=== PATIENT | female | born 1985 | race African-American/Black ===

== ENCOUNTER 2020-08-03 20:32 | Emergency (ER) | payer OTHER ==
--- NOTE | 2020-08-03 20:49 | PDOC ---
Rapid Medical Evaluation Time Seen by Provider: 08/03/20 20:45 Medical Evaluation: Allergies Allergy/AdvReac Type Severity Reaction Status Date / Time No Known Allergies Allergy Verified 04/10/16 07:28 08/03/20 20:46 34 year old female pmhx of DMII heavy smoker with 3 days of left shoulder pain non radiating. Denies CP SOB PE: reproducible pain on ROM ttp over left trap Plan: EKG if WNL pt to precede to FT
[2020-08-03 20:51] VITALS: BMI 44.4
--- OUTSIDE RECORDS SUMMARY | 2020-08-03 21:00 | XMS ---
:1985 Author Organization [facility] Support Name Relationship Address Phone SHOP Unavailable [address] [place] [address] S[place] [address] SINDHU TRIPP Unavailable Unavailable Unavailable Re-disclosure Warning The records that you are about to access may contain information from federally- assisted alcohol or drug abuse programs. If such information is present, then the following federally mandated warning applies: This information has been disclosed to you from records protected by federal confidentiality rules (42 CFR part 2). The federal rules prohibit you from making any further disclosure of this information unless further disclosure is expressly permitted by the written consent of the person to whom it pertains or as otherwise permitted by 42 CFR part 2. A general authorization for the release of medical or other information is NOT sufficient for this purpose. The Federal rules restrict any use of the information to criminally investigate or prosecute any alcohol or drug abuse patient.The records that you are about to access may contain highly sensitive health information, the redisclosure of which is protected by Article 27-F of the [facility] Public Health law. If you continue you may haveaccess to information: Regarding HIV / AIDS; Provided by facilities licensed or operated by the [facility] Office of Mental Health; or Provided by the [facility] Office for People With Developmental Disabilities. If such information is present, then the following [facility] mandated warning applies: This information has been disclosed to you from confidential records which are protected by state law. State law prohibits you from making any further disclosure of this information without the specific written consent of the person to whom it pertains, or as otherwise permitted by law. Any unauthorized further disclosure in violation of state law may result in a fine or alf sentence or both. A general authorization for the release of medical or other information is NOT sufficient authorization for further disclosure. Encounters Encounter Providers Location Date Indications Data Source(s ) Outpatient [facility] 08/26/2019 eCW3 ([facility] 12:00:00 AM Health Care) EST - 08/26/2019 12:00:00 AM EST Outpatient [facility] 08/19/2019 eCW3 ([facility] 12:00:00 AM Health Care) EDT - 08/19/2019 12:00:00 AM EDT Outpatient [facility] 07/28/2019 eCW3 ([facility] 12:00:00 AM Health Care) EDT - 07/28/2019 12:00:00 AM EDT Outpatient [facility] 07/10/2019 eCW3 ([facility] 12:00:00 AM Health Care) EDT - 07/10/2019 12:00:00 AM EDT Outpatient [facility] 06/13/2019 eCW3 ([facility] 12:00:00 AM Health Care) EDT - 06/13/2019 12:00:00 AM EDT Immunizations Vaccine Date Status Description Data Source(s) New in 2011. IIV4 07/28/2019 completed eCW3 ([facility] 11:16:00 AM EDT Health Care) Pneumococcal conjugate 07/28/2019 completed eCW3 [facility] New in 2011. IIV4 07/28/2019 completed eCW3 ([facility] 11:16:00 AM EDT Health Care) Pneumococcal conjugate 07/28/2019 completed eCW3 ([facility] 11:16:00 AM ED Health Care) New in 2011. IIV4 07/28/2019 completed eCW3 ([facility] 11:16:00 AM EDT Health Care) Pneumococcal conjugate 07/28/2019 completed eCW3 ([facility] 11:16:00 AM ED Health Care) New in 2011. IIV4 07/28/2019 completed eCW3 ([facility] 11:16:00 AM EDT Health Care) Pneumococcal conjugate 07/28/2019 completed eCW3 ([facility] 11:16:00 AM ED Health Care) Medications Medication Brand Start Product Dose Route Administrative Pharmacy [facility] Indications Reaction Description Data Name Date Form Instructions Instructions Source(s) Ibuprofen Ibupro 04/21/ active Ibuprofen eCW3 600 MG Oral fen 2020 600 MG ([facility] 600 MG 12:00: [facility] 00 AM Health EDT Care) Ibuprofen Ibupro 04/21/ active Ibuprofen eCW3 600 MG Oral fen 2020 600 MG ([place] [facility] Tablet 600 MG 12:00: [facility] 00 AM Health EDT Care) Ibuprofen Ibupro 04/21/ active Ibuprofen eCW3 600 MG Oral fen 2020 600 MG ([place] Tablet 600 MG 12:00: [facility] 00 AM Health EDT Care) Ibuprofen Ibupro 04/21/ active Ibuprofen eCW3 600 MG Oral fen 2020 600 MG ([place] Tablet 600 MG 12:00: [facility] 00 AM Health EDT Care) Ibuprofen Ibupro 04/21/ active Ibuprofen eCW3 600 MG Oral fen 2020 600 MG ([place] [facility] Tablet 600 MG 12:00: [facility] 00 AM Health EDT Care) Methimazole Methim .0 active Methima zole eCW3 5 MG Oral azole 2019 {tabl 5 MG ([facility] Tablet 5 MG 12:00: [facility] 00 AM th_fo Health EST od} Care) Methimazole Methim .0 active Methima zole eCW3 5 MG Oral azole 2019 {tabl 5 MG ([facility] Tablet 5 MG 12:00: [facility] 00 AM th_fo Health EST od} Care) Methimazole Methim .0 active Methima zole eCW3 5 MG Oral azole 2019 {tabl 5 MG ([facility] Tablet 5 MG 12:00: [facility] 00 AM th_fo Health EST od} Care) Methimazole Methim .0 active Methima zole eCW3 5 MG Oral azole 2019 {tabl 5 MG ([facility] Tablet 5 MG 12:00: [facility] 00 AM th_fo Health EST od} Care) Methimazole Methim .0 active Methima zole eCW3 5 MG Oral azole 2019 {tabl 5 MG ([facility] Tablet 5 MG 12:00: [facility] 00 AM th_fo Health EST od} Care) Methimazole Methim .0 active Methima zole eCW3 5 MG Oral azole 2019 {tabl 5 MG ([facility] Tablet 5 MG 12:00: [facility] 00 AM th_fo Health EST od} Care) Metformin Metfor .0 active Metformin eCW3 hydrochlori min 2019 {tabl HCl 1000 MG ([facility] de 1000 MG HCl 12:00: [facility] Oral Tablet 1000 00 AM _a_ Health Metformin MG EDT meal} Care) HCl 1000 MG Metformin Metfor .0 active Metformin eCW3 hydrochlori min 2019 {tabl HCl 1000 MG ([facility] de 1000 MG HCl 12:00: [facility] Oral Tablet 1000 00 AM _a_ Health Metformin MG EDT meal} Care) HCl 1000 MG Metformin Metfor .0 active Metformin eCW3 hydrochlori min 2019 {tabl HCl 1000 MG ([facility] de 1000 MG HCl 12:00: [facility] Oral Tablet 1000 00 AM _a_ Health Metformin MG EDT meal} Care) HCl 1000 MG Metformin Metfor .0 active Metformin eCW3 hydrochlori min 2019 {tabl HCl 1000 MG ([facility] de 1000 MG HCl 12:00: [facility] Oral Tablet 1000 00 AM _a_ Health Metformin MG EDT meal} Care) HCl 1000 MG Metformin Metfor .0 active Metformin eCW3 hydrochlori min 2019 {tabl HCl 1000 MG ([facility] de 1000 MG HCl 12:00: [facility] Oral Tablet 1000 00 AM _a_ Health Metformin MG EDT meal} Care) HCl 1000 MG Metformin Metfor .0 active Metformin eCW3 hydrochlori min 2019 {tabl HCl 1000 MG ([facility] de 1000 MG HCl 12:00: et_wi [facility] Oral Tablet 1000 00 AM _a_ Health Metformin MG EDT meal} Care) HCl 1000 MG BD Pen BD Pen 07/11/ active BD Pen eCW3 Needle Mini Needle 2018 Needle Mini ([facility] U/F 31G X 5 Mini 12:00: U/F 31G X 5 [facility] MM U/F 00 AM MM Health 31G X EDT Care) 5 MM Pen [place] Pen 07/11/ active Pen Needl es eCW3 31G X 8 MM Needle 2019 31G X 8 MM ( [facility] 31G 12:00: [facility] X 8 MM 00 AM Health EDT Care) Pen [place] Pen 07/11/ active Pen Needl es eCW3 31G X 8 MM Needle 2019 31G X 8 MM ( [facility] 31G 12:00: [facility] X 8 MM 00 AM Health EDT Care) BD Pen BD Pen 07/11/ active BD Pen eCW3 Needle Mini Needle 2018 Needle Mini ([facility] U/F 31G X 5 Mini 12:00: U/F 31G X 5 [facility] MM U/F 00 AM MM Health 31G X EDT Care) 5 MM Pen [place] Pen 07/11/ active Pen Needl es eCW3 31G X 8 MM Needle 2018 31G X 8 MM ( [facility] 31G 12:00: [facility] X 8 MM 00 AM Health EDT Care) Isopropyl Alcoho 07/11/ active Alcohol P rep eCW3 Alcohol 0.7 l Prep 2018 70 % ([place] [facility] ML/ML 70 % 12:00: [facility] Medicated 00 AM Health Pad Alcohol EDT Care) Prep 70 % Pen [place] Pen 07/11/ active Pen Needl es eCW3 31G X 8 MM Needle 2019 31G X 8 MM ( [facility] 31G 12:00: [facility] X 8 MM 00 AM Health EDT Care) Isopropyl Alcoho 07/11/ active Alcohol P rep eCW3 Alcohol 0.7 l Prep 2018 70 % ([place] [facility] ML/ML 70 % 12:00: [facility] Medicated 00 AM Health Pad Alcohol EDT Care) Prep 70 % Isopropyl Alcoho 07/11/ active Alcohol P rep eCW3 Alcohol 0.7 l Prep 2018 70 % ([place] [facility] ML/ML 70 % 12:00: [facility] Medicated 00 AM Health Pad Alcohol EDT Care) Prep 70 % Isopropyl Alcoho 07/11/ active Alcohol P rep eCW3 Alcohol 0.7 l Prep 2018 70 % ([place] [facility] ML/ML 70 % 12:00: [facility] Medicated 00 AM Health Pad Alcohol EDT Care) Prep 70 % BD Pen BD Pen 07/11/ active BD Pen eCW3 Needle Mini Needle 2019 Needle Mini ([facility] U/F 31G X 5 Mini 12:00: U/F 31G X 5 [facility] MM U/F 00 AM MM Health 31G X EDT Care) 5 MM BD Pen BD Pen 07/11/ active BD Pen eCW3 Needle Mini Needle 2018 Needle Mini ([facility] U/F 31G X 5 Mini 12:00: U/F 31G X 5 [facility] MM U/F 00 AM MM Health 31G X EDT Care) 5 MM BD Pen BD Pen 07/11/ active BD Pen eCW3 Needle Mini Needle 2018 Needle Mini ([facility] U/F 31G X 5 Mini 12:00: U/F 31G X 5 [facility] MM U/F 00 AM MM Health 31G X EDT Care) 5 MM Isopropyl Alcoho 07/11/ active Alcohol P rep eCW3 Alcohol 0.7 l Prep 2018 70 % ([place] ML/ML 70 % 12:00: [facility] Medicated 00 AM Health Pad Alcohol EDT Care) Prep 70 % Isopropyl Alcoho 07/11/ active Alcohol P rep eCW3 Alcohol 0.7 l Prep 2018 70 % ([place] [facility] ML/ML 70 % 12:00: [facility] Medicated 00 AM Health Pad Alcohol EDT Care) Prep 70 % BD Pen BD Pen 07/11/ active BD Pen eCW3 Needle Mini Needle 2018 Needle Mini ([facility] U/F 31G X 5 Mini 12:00: U/F 31G X 5 [facility] MM U/F 00 AM MM Health 31G X EDT Care) 5 MM Pen [place] Pen 07/11/ active Pen Needl es eCW3 31G X 8 MM Needle 2018 31G X 8 MM ( [facility] 31G 12:00: [facility] X 8 MM 00 AM Health EDT Care) Pen [place] Pen 07/11/ active Pen Needl es eCW3 31G X 8 MM Needle 2018 31G X 8 MM ( [facility] 31G 12:00: [facility] X 8 MM 00 AM Health EDT Care) Blood Blood 07/10/ active Blood eCW3 Glucose Glucos 2018 Glucose Test ([facility] Test - e Test 12:00: - [facility] - 00 AM Health EDT Care) Accu-Chek Accu-C 07/10/ active Accu-Chek eCW3 Umm - hek 2018 Umm - ([facility] Umm 12:00: [facility] - 00 AM Health EDT Care) Accu-Chek Accu-C 07/10/ active Accu-Chek eCW3 Umm - hek 2018 Umm - ([facility] Umm 12:00: [facility] - 00 AM Health EDT Care) Blood Blood 09/19/ active Blood eCW3 Glucose Glucos 2019 Glucose Test ([facility] Test - e Test 12:00: - [facility] - AM Health EDT Care) Lancets - Lancet 07/10/ active Lancets - eCW3 s - 2019 ([facility] 12:00: [facility] AM Health EDT Care) Lancets - Lancet 07/10/ active Lancets - eCW3 s - 2019 ([facility] 12:00: [facility] AM Health EDT Care) Accu-Chek Accu-C 07/10/ active Accu-Chek eCW3 Umm - hek 2018 Umm - ([facility] Umm 12:00: [facility] - AM Health EDT Care) Blood Blood 07/10/ active Blood eCW3 Glucose Glucos 2019 Glucose Test ([facility] Test - e Test 12:00: - [facility] - AM Health EDT Care) Accu-Chek Accu-C 07/10/ active Accu-Chek eCW3 Umm - hek 2018 Umm - ([facility] Umm 12:00: [facility] - AM Health EDT Care) Blood Blood 07/10/ active Blood eCW3 Glucose Glucos 2019 Glucose Test ([facility] Test - e Test 12:00: - [facility] - AM Health EDT Care) Accu-Chek Accu-C 07/10/ active Accu-Chek eCW3 Umm - hek 2018 Umm - ([facility] Umm 12:00: [facility] - AM Health EDT Care) Lancets - Lancet 07/10/ active Lancets - eCW3 s - 2019 ([facility] 12:00: [facility] AM [facility] EDT Care) Lancets - Lancet 07/10/ active Lancets - eCW3 s - 2019 ([facility] 12:00: [facility] AM Health EDT Care) Blood Blood 07/10/ active Blood eCW3 Glucose Glucos 2019 Glucose Test ([facility] Test - e Test 12:00: - [facility] - AM Health EDT Care) Accu-Chek Accu-C 07/10/ active Accu-Chek eCW3 Umm - hek 2018 Umm - ([facility] Umm 12:00: [facility] - AM Health EDT Care) Blood Blood 07/10/ active Blood eCW3 Glucose Glucos 2019 Glucose Test ([facility] Test - e Test 12:00: - [facility] - 00 AM Health EDT Care) Lancets - Lancet 07/10/ active Lancets - eCW3 s - 2018 ([facility] 12:00: [facility] 00 AM Health EDT Care) Lancets - Lancet 07/10/ active Lancets - eCW3 s - 2018 ([facility] 12:00: [facility] 00 AM Health EDT Care) Insurance Providers Payer name Policy type Policy ID Covered Covered republican's Policy P jonathan / Coverage republican ID relationship to [place] [employer] ormation type [place] WERNER [id number] 100 HEALTH NON CAP Problems, Conditions, and Diagnoses Code Display Name Description Problem Type Effective Data Dates Source(s) E05.90 Hyperthyroidism Hyperthyroidism Problem 08/26/2019 eCW3 ([place] 12:00:00 [facility]) E11.9 Type 2 diabetes Type 2 diabetes Problem 07/28/2019 eCW3 ([place] mellitus without mellitus without 12:00:00 AM [facility] complication, complication, EDT Care) without long-term without long-term current use of current use of insulin insulin Social History Code Duration Value Status Description Data Source(s ) Smoking 07/20/2020 12:00:00 Former Smoker completed Former Smoker eCW3 ([facility]) Smoking 07/20/2020 12:00:00 Former Smoker completed Former Smoker eCW3 ([facility]) Smoking 04/21/2020 12:00:00 Former Smoker completed Former Smoker eCW3 ([facility]) Smoking 04/21/2020 12:00:00 Former Smoker completed Former Smoker eCW3 ([facility]) Smoking 04/21/2020 12:00:00 Former Smoker completed Former Smoker eCW3 ([facility]) Smoking 12/02/2019 12:00:00 Former Smoker completed Former Smoker eCW3 ([facility]) Vital Signs ID Date Data Source UNK Name Value Range Interpretation Code Description Data Source(s) Diastolic blood 78 mm[Hg] 78 mm[Hg] eCW3 ([facility]) Systolic blood 125 mm[Hg] 125 mm[Hg] eCW3 ([facility]) Body temperature 97.6 [degF] 97.6 [degF] eCW3 ( [facility]) Heart rate 20 /min 20 /min eCW3 ([facility]) Body mass index 40.78 kg/m2 40.78 kg/m2 eCW3 ([facility]e connel[facility] (BMI) [Ratio] [facility]) Body weight 223 [lb_av] 223 [lb_av] eCW3 ([facility]) Body height 62.0 [in_i] 62.0 [in_i] eCW3 ([facility]) Diastolic blood 83 mm[Hg] 83 mm[Hg] eCW3 ([facility]) Systolic blood 121 mm[Hg] 121 mm[Hg] eCW3 ([facility]) Body temperature 98.1 [degF] 98.1 [degF] eCW3 ( [facility]) Heart rate 18 /min 18 /min eCW3 ([facility]) Body mass index 40.60 kg/m2 40.60 kg/m2 eCW3 (Noe connelly (BMI) [Ratio] [facility]) Body weight 222.0 222.0 [lb_av] eCW3 ([facility] on [lb_av] [facility]) Body height 62.0 [in_i] 62.0 [in_i] eCW3 ([facility]) Diastolic blood 76 mm[Hg] 76 mm[Hg] eCW3 ([facility]) Systolic blood 122 mm[Hg] 122 mm[Hg] eCW3 ([facility]) Body temperature 98.2 [degF] 98.2 [degF] eCW3 ( [facility]) Heart rate 18 /min 18 /min eCW3 ([facility]) Body mass index 41.15 kg/m2 41.15 kg/m2 eCW3 ([facility] (BMI) [Ratio] [facility]) Body weight 225.0 225.0 [lb_av] eCW3 ([facility] on [lb_av] [facility]) Body height 62 [in_i] 62 [in_i] eCW3 ([facility]) Diastolic blood 87 mm[Hg] 87 mm[Hg] eCW3 ([facility]) Systolic blood 135 mm[Hg] 135 mm[Hg] eCW3 ([facility]) Body temperature 97.8 [degF] 97.8 [degF] eCW3 ( [facility]) Heart rate 20 /min 20 /min eCW3 ([facility]) Body mass index 41.51 kg/m2 41.51 kg/m2 eCW3 ([facility] (BMI) [Ratio] [facility]) Body weight 227 [lb_av] 227 [lb_av] eCW3 ([facility]) Body height 62 [in_i] 62 [in_i] eCW3 ([facility]) Diastolic blood 87 mm[Hg] 87 mm[Hg] eCW3 ([facility]) Systolic blood 137 mm[Hg] 137 mm[Hg] eCW3 ([facility]) Body temperature 98.2 [degF] 98.2 [degF] eCW3 ( [facility]) Heart rate 20 /min 20 /min eCW3 ([facility]) Body mass index 43.16 kg/m2 43.16 kg/m2 eCW3 ([facility] (BMI) [Ratio] [facility]) Body weight 236 [lb_av] 236 [lb_av] eCW3 ([facility]) Body height 62 [in_i] 62 [in_i] eCW3 ([facility]) Patient Treatment Plan of Care Planned Activity Planned Date Details Description Data Source (s) Ibuprofen 600 MG Oral 04/21/2020 12:00:00 eCW3 ([facility]t [facility]) Ibuprofen 600 MG Oral 04/21/2020 12:00:00 eCW3 ([facility] Tablet [facility]) Ibuprofen 600 MG Oral 04/21/2020 12:00:00 eCW3 ([facility] Tablet [facility])
--- NOTE | 2020-08-03 21:54 | PDOC ---
History of Present Illness - General Chief Complaint: Pain Stated Complaint: LT SHOULDER PAIN Time Seen by Provider: 08/03/20 20:45 History Source: Patient - History of Present Illness Initial Comments: 08/03/20 23:34 34-year-old female complaining of left shoulder pain for the last 3 days. Patient reports that she has taken Advil and Tylenol with no significant relief. Patient reports pain is worse on palpation denies chest pain patient is noted to be hypertensive in triage patient denies any history of hypertension. Denies shortness of breath, fever, chills, known: COVID exposure Past History - Medical History Allergies/Adverse Reactions: Allergies Allergy/AdvReac Type Severity Reaction Status Date / Time No Known Allergies Allergy Verified 04/10/16 07:28 Home Medications: Ambulatory Orders Albuterol Sulfate Inhaler - [Ventolin HFA Inhaler -] 2 inhaler PO PRN PRN 02/25/16 Vitamins (Sjr) - 1 tab PO DAILY 02/25/16 Acetaminophen [Tylenol .Regular Strength -] 650 mg PO Q4H PRN #0 tablet 04/13/16 Ibuprofen [Motrin -] 600 mg PO Q4H PRN #30 tablet 04/13/16 Cyclobenzaprine HCl [Flexeril -] 10 mg PO TID PRN #10 tablet 08/04/20 Ibuprofen 600 mg PO QID PRN #20 tablet 08/04/20 Asthma: Yes Cancer: No Cardiac Disorders: No Diabetes: Yes HTN: No Seizures: No Thyroid Disease: No - Reproductive History Is Patient Now?: No - Immunization History Immunization Up to Date: Yes - Psycho-Social/Smoking History Smoking History: Current every day smoker Have you smoked in the past 12 months: No Number of Cigarettes Smoked Daily: 10 Information on smoking cessation initiated: Yes - Substance Abuse Hx (Audit-C & DAST Scrn) How often the patient has a drink containing alcohol: Never Score: In Men: 4 or > Positive; In Women: 3 or > Positive: 0 Screen Result (Pos requires Nsg. Audit-10AR): Negative Review of Systems - Review of Systems Able to Perform ROS?: Yes Is the patient limited [place] proficient: No Constitutional: No: Symptoms Reported, See HPI, Chills, Diaphoresis, Fever, Loss of Appetite, Malaise, Night Sweats, Weakness, Weight Stable, Unintentional Wgt. Loss, Unexplained wgt Loss, Other Musculoskeletal: Yes: Other (shoulder pain) *Physical Exam - Vital Signs Last Vital Signs Temp Pulse Resp BP Pulse Ox 98.1 F 94 H 20 161/111 H 98 08/03/20 20:45 08/03/20 20:45 08/03/20 20:45 08/03/20 20:45 08/03/20 20:45 - Physical Exam General Appearance: Yes: Appropriately Dressed Respiratory/Chest: positive: Lungs Clear, Normal Breath Sounds. negative: Chest Tender Cardiovascular: positive: Regular Rhythm, Regular Rate Musculoskeletal: positive: Other (full rom , left trapezius muscle tenderness) ED Treatment Course - LABORATORY CBC & Chemistry Diagram: 08/03/20 23:08 08/03/20 23:08 ED Progress Note - Progress Note Progress Note: 08/03/20 23:38 A: hypertension; left shoulder pain P: labs chest xra Medical Decision Making - Medical Decision Making 08/04/20 00:32 chest : wnl Discharge - Discharge Information Problems reviewed: Yes Clinical Impression/Diagnosis: Musculoskeletal pain Hypertension Qualifiers: Hypertension type: unspecified Qualified Code(s): I10 - Essential (primary) hypertension Disposition: HOME - Additional Discharge Information Prescriptions: Cyclobenzaprine HCl [Flexeril -] 10 mg PO TID PRN #10 tablet PRN Reason: Muscle Spasms Ibuprofen 600 mg PO QID PRN #20 tablet PRN Reason: Pain - Follow up/Referral - Patient Discharge Instructions Patient Printed Discharge Instructions: Essential Hypertension Additional Instructions: Monitor your blood pressure daily. follow-up with your doctor for close monitoring. Apply ice to the area for the first 24 hours. Then alternate with ice and heat after. Take ibuprofen every 6 hours as needed for pain. Take Flexeril as prescribed for muscle spasm. Flexeril can make you sleepy, do not drive or operate heavy machinery after taking the medication. Follow-up with your primary doctor soon as possible Return to the emergency room for any worsening symptoms. - Post Discharge Activity Work/Back to School Note: Back to Work
[2020-08-03 23:27] LABS: BASO % 1.5 % (0-2.0); HEMOGLOBIN 13.9 GM/dL (10.7-15.3); LYMPH % 43.9 % (8-40); MCH 31.3 pg (25.7-33.7); MCHC 34.8 g/dl (32.0-36.0); MEAN CELL VOLUME 89.7 fl (80-96); MONO % 5.9 % (3.8-10.2); NEUT % 44.7 % (42.8-82.8); PLATELET COUNT 262 K/MM3 (134-434); RBC 4.46 M/mm3 (3.60-5.2); RDW 12.1 % (11.6-15.6); WHITE BLOOD COUNT 10.8 K/mm3 (4.0-10.0)
[2020-08-03] MEDS ORDERED: KETOROLAC TROMETHAMINE 30 MG/1 ML VIAL IM ONE (23:57)
[2020-08-04 00:02] LABS: ALBUMIN 3.5 g/dl (3.4-5.0); ANION GAP 7 MMOL/L (8-16); BILIRUBIN,TOTAL 0.5 mg/dL (0.2-1); BLOOD UREA NITROGEN 15.5 mg/dL (7-18); CALCIUM 8.7 mg/dL (8.5-10.1); CHLORIDE 105 mmol/L (98-107); CO2 25 mmol/L (21-32); CREATININE 0.6 mg/dL (0.55-1.3); GLUCOSE,RANDOM 90 mg/dL (74-106); POTASSIUM 3.9 mmol/L (3.5-5.1); SODIUM 137 mmol/L (136-145)
[2020-08-04 00:03] LABS: ALK PHOS 60 U/L (45-117); SGOT/AST 20 U/L (15-37); SGPT/ALT 32 U/L (13-61)
[2020-08-04] MEDS ORDERED: KETOROLAC TROMETHAMINE 30 MG/1 ML VIAL ONE (00:11)
[2020-08-04 01:31] VITALS: BP 119/76; PULSE 77; TEMP 98.4
--- NOTE | 2020-08-05 13:36 | EKG ---
Test Reason : Blood Pressure : / mmHG Vent. Rate : 081 BPM Atrial Rate : 081 BPM P-R Int : 154 ms QRS Dur : 082 ms QT Int : 372 ms P-R-T Axes : 038 037 009 degrees QTc Int : 432 ms NORMAL SINUS RHYTHM POSSIBLE LEFT ATRIAL ENLARGEMENT BORDERLINE ECG WHEN COMPARED WITH ECG OF 21-FEB-2016 10:52, NO SIGNIFICANT CHANGE WAS FOUND Confirmed by ROMEO PAPPAS MD ([id number]) on 08/05/2020 1:36:16 PM Referred By: Confirmed By:ROMEO PAPPAS MD
== END 2020-08-04 01:31 | disposition home or self-care (01) ==
LOC: JER 20:32
PROC: 3E0233Z Introduction of Anti-inflammatory into Muscle, Percutaneous Approach (ICD-10-PCS; principal; 2020-08-03)
DX: M79.10 Myalgia, unspecified site (principal); I10 Essential (primary) hypertension
CPT/HCPCS: 36415; 71046-TC-FY; 80053; 84484; 85025; 93005; 93010; 99285-25

== ENCOUNTER 2022-11-20 08:19 | Emergency (ER) | payer OTHER ==
[2022-11-20 08:25] VITALS: BP 121/67; PULSE 97; RESP 17; TEMP 98.3; BMI 47.2
== END 2022-11-20 10:19 | disposition home or self-care (01) ==
LOC: JER 08:19 → JERFT 08:19
DX: L05.01 Pilonidal cyst with abscess (principal)
CPT/HCPCS: 82962; 99283-25

== ENCOUNTER 2023-04-15 15:30 | Emergency (ER) | payer OTHER ==
[2023-04-15 15:43] VITALS: BP 143/98; PULSE 117; RESP 19; TEMP 98.3; BMI 43.4
[2023-04-15] MEDS ORDERED: IBUPROFEN 600 MG TABLET (FP) PO ONE ×3 (17:31→17:58)
[2023-04-15] MEDS ORDERED: SULFAMETHOXAZOLE/TRIMETHOPRIM 800MG/160MG D.S. TABLET PO ONE (17:34)
[2023-04-15] MEDS ORDERED: SULFAMETHOXAZOLE/TRIMETHOPRIM 800MG/160MG D.S. TABLET ONE (17:57)
== END 2023-04-15 18:16 | disposition home or self-care (01) ==
LOC: JERFT 15:30 → JER 15:30
DX: L02.412 Cutaneous abscess of left axilla (principal)
CPT/HCPCS: 99283-25

== ENCOUNTER 2023-04-17 09:40 | Emergency (ER) | payer OTHER ==
[2023-04-17 09:46] VITALS: BP 110/73; PULSE 90; RESP 18; TEMP 99.1; BMI 43.4
== END 2023-04-17 10:13 | disposition home or self-care (01) ==
LOC: JERFT 09:40
DX: S41.102D Unspecified open wound of left upper arm, subsequent encounter (principal); Z48.00 Encounter for change or removal of nonsurgical wound dressing
CPT/HCPCS: 99282-25

== ENCOUNTER 2023-12-10 10:10 | Emergency (ER) | payer OTHER ==
[2023-12-10 10:18] VITALS: BP 123/87; PULSE 108; RESP 20; TEMP 99.7; BMI 41.5
[2023-12-10] MEDS ORDERED: IBUPROFEN 400 MG TABLET (FP) PO ONE ×2 (10:28→10:38)
== END 2023-12-10 11:18 | disposition home or self-care (01) ==
LOC: JERFT 10:10
DX: R50.9 Fever, unspecified (principal); R05.9 Cough, unspecified; R09.81 Nasal congestion; Z20.822 Contact with and (suspected) exposure to COVID-19
CPT/HCPCS: 0241U-QW; 99283-25